=== PATIENT | female | born 1955 | race Caucasian/White ===

== ENCOUNTER → 2024-07-18 | Day surgery (SDC) | payer MEDICARE, BC ==
[~2024-07-18] VITALS: Ht 152.4 cm; Wt 63.0 kg
[~2024-07-18] MED LIST: ACETAMINOPHEN 325MG TABLET PO PRN; ALBU18HF2 IH; ASPIRIN/SOD BICARB/CITRIC ACID 324MG TAB EFF ONE; ATROPINE SULFATE 1MG/10ML SYR IV PRN; CARV12.545 PO; FENTANYL CITRATE/PF 50MCG/ML 2ML VIAL ONE; HEPARIN 1000 UNITS/ML 10ML ONE; HYDR-4001 PO; IODIXANOL 320MG/ML 100 ML BOTTLE IV ONE; LEVO75TA PO; LIDOCAINE HCL 1% 20ML VIAL ONE; MIDAZOLAM HCL 2 MG/2 ML VIAL ONE; MORPHINE SULFATE 2 MG/ML INJ (NOT FOR IM USE) IV PRN; ONDANSETRON HCL 4MG/2ML INJ IV PRN; POTA-205 PO; ROPI2TAB52 PO; ROSU40TA PO; SODIUM CHLORIDE 0.45% 1,000 ML IV ONE
[2024-07-18 07:45] LABS: BASOPHILS % 0.5 % (0.0-2.0); EOSINOPHILS % 2.5 % (0.0-5.0); HEMATOCRIT. 30.5 % (36.0-48.0); HEMOGLOBIN. 10.7 g/dL (12.0-16.0); LYMPHOCYTES % 14.2 % (20.0-50.0); MEAN CORPUSCULAR HGB CONC 35.2 g/dL (31.0-37.0); MEAN CORPUSCULAR VOLUME 85.2 fL (81.0-99.0); MEAN PLATELET VOLUME 5.9 fl (7.4-10.4); MONOCYTES % 6.1 % (2.0-8.0); NEUTROPHILS % 76.7 % (40.0-76.0); PLATELET 292 x1000/uL (130-400); RED BLOOD CELL COUNT 3.58 mill/uL (4.2-5.4); RED CELL DISTRIBUTION WIDTH 15.2 % (11.6-14.6)
[2024-07-18 07:50] LABS: POTASSIUM 3.5 mEq/L (3.5-5.1)
[2024-07-18 07:51] LABS: CALCIUM 9.6 mg/dL (8.7-10.4)
[2024-07-18 07:56] LABS: CREATININE 2.3 mg/dL (0.6-1.0)
[2024-07-18] MEDS: SODIUM CHLORIDE 0.9% 500 ML IV ONE (09:07)
== END | disposition home or self-care (01) ==
LOC: CCL 06:57
PROVIDERS: ATTEND Specialist
DX: I25.10 Atherosclerotic heart disease of native coronary artery without angina pectoris (principal); R06.09 Other forms of dyspnea; I13.10 Hypertensive heart and chronic kidney disease without heart failure, with stage 1 through stage 4 chronic kidney disease, or unspecified chronic kidney disease; N18.9 Chronic kidney disease, unspecified; E03.9 Hypothyroidism, unspecified; E78.5 Hyperlipidemia, unspecified; I65.21 Occlusion and stenosis of right carotid artery; Z79.82 Long term (current) use of aspirin; Z79.899 Other long term (current) drug therapy; Z79.890 Hormone replacement therapy; Z86.2 Personal history of diseases of the blood and blood-forming organs and certain disorders involving the immune mechanism
CPT/HCPCS: 93458; 80048; 85025; 85347; 36415; 93571; 93572; C1893; C1725; C1769 ×3; J3010; Q9967; J1644 ×2; J3490; J2250; C1887 ×2; 99152; 99153; A4606; G0500